=== PATIENT | male | born 1960 | race Two or more races ===

== ENCOUNTER 2025-05-29 09:34 | Inpatient (IN) | payer OTHER ==
[~2025-05-29] VITALS: Ht 337.8 cm; Wt 96.5 kg
--- NOTE | 2025-05-29 10:00 | ECG ---
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
--- NOTE | 2025-05-29 10:34 | DVH ---
CLINICAL INDICATION: Pain, trauma TECHNIQUE: 3 radiographic views of the right knee were obtained. Comparison: XY R KNEE 3V XRAY on DOS: 05/24/25, XY L KNEE 3V XRAY on DOS: 05/24/25 FINDINGS/IMPRESSION: There is no evidence of acute fracture or dislocation. Severe right tricompartmental knee osteoarthrosis.
--- NOTE | 2025-05-29 10:47 | ED.PDOC ---
History of Present Illness HPI Comments 64-year-old male is brought in by ambulance for chief complaint of bilateral knee pain. Per EMS report, patient has a history of chronic bilateral knee pain for over the past year. He states to have worsening general weakness and increased frequency of multiple falls since onset of knee pain, with more recent fall taking place, this morning. Patient is stated to have fallen after losing balance onto his knees, sustaining no additional injuries or losing consciousness then. He denies any further acute symptoms at this time. Chief Complaint: Lower Extremity Time Seen by MD: 09:50 Reviewed Notes: Nurses Notes, Rn Cardiac Notes Allergies: Coded Allergies: NO KNOWN ALLERGIES (Unverified , 05/29/25) Information Source: Patient, Emergency Med Personnel Mode of Arrival: EMS Past Medical History PAST MEDICAL HISTORY: DM, High Lipids, HTN Social History Lives In: Home All Other Systems: Reviewed and Negative (Comprehensive review of systems are negative unless otherwise stated in HPI) Physical Exam General Appearance: Moderate Distress HEENT: Normal ENT Inspection, Pharynx Normal, TMs Normal Neck: Full Range of Motion, Non-Tender, Normal, Normal Inspection Respiratory: Chest Non-Tender, Lungs Clear, No Accessory Muscle Use, No Respiratory Distress, Normal Breath Sounds Cardiovascular: No Edema, No JVD, No Murmur, No Gallop, Normal Peripheral Pulses, Regular Rate/Rhythm Breast Exam: Deferred Gastrointestinal: No Organomegaly, Non Tender, No Pulsatile Mass, Normal Bowel Sounds, Soft Genitalia: Deferred Pelvic: Deferred Rectal: Deferred Extremities: No calf tenderness, Normal capillary refill, Normal range of motion, Non-tender, No pedal edema, Swelling (Bilateral feet) Musculoskeletal : Apperance: Normal Neurologic: Alert, mink farmer II-XII nml as Tested, No Motor Deficits, Normal Affect, Normal Mood, No Sensory Deficits Cerebellar Function: NOT DONE Reflexes: NOT DONE Skin: Dry, Normal Color, Warm, Wounds (Right knee) Peripheral Pulses: 3+ Radial (R), 3+ Radial (L) Lymphatic: No Adenopathy Was a procedure done? Was a procedure done?: No EKG EKG : Pulse Rate (adult): 81 [place]: Normal Cardiac Rhythm: NSR Block: None Hypertrophy: None ST: Normal Differential Dx Considerations may include: Differential diagnoses considered include but are not limited to long bone fracture, rib fracture, soft tissue injury, vascular injury, other X-Ray, Labs, Meds, VS Vital Signs Date Time Temp Pulse Resp B/P (MAP) Pulse Ox O2 Delivery O2 Flow Rate FiO2 05/29/25 10:47 81 05/29/25 09:44 81 05/29/25 09:34 99.9 88 18 151/91 94 99.9 Lab Test 05/29/25 10:37 Range/Units White Blood Count 11.6 H 4.4-10.8 10^3/uL Red Blood Count 5.46 4.5-5.90 10^6/uL Hemoglobin 16.2 13.5-17.5 g/dL Hematocrit 47.7 41.0-53.0 % Mean Corpuscular Volume 87.4 80.0-100.0 fL Mean Corpuscular Hemoglobin 29.7 28.0-32.0 pg Mean Corpuscular Hemoglobin Concent 34.0 32.0-36.0 g/dL Red Cell Distribution Width 14.1 11.8-14.3 % Platelet Count 256 140-450 10^3/uL Mean Platelet Volume 7.8 6.9-10.8 fL Neutrophils (%) (Auto) 82.6 H 37.0-80.0 % Lymphocytes (%) (Auto) 9.6 L 10.0-50.0 % Monocytes (%) (Auto) 7.5 0.0-12.0 % Eosinophils (%) (Auto) 0.2 0.0-7.0 % Basophils (%) (Auto) 0.1 0.0-2.0 % Neutrophils # (Auto) 9.5 H 1.6-8.6 10 ^3/uL Lymphocytes # (Auto) 1.1 0.4-5.4 10 ^3/uL Monocytes # (Auto) 0.9 0-1.3 10 ^3/uL Eosinophils # (Auto) 0 0-0.8 10 ^3/uL Basophils # (Auto) 0 0-0.2 10 ^3/uL Nucleated Red Blood Cells 0.1 % Sodium Level Pending Potassium Level Pending Chloride Level Pending Carbon Dioxide Level Pending Anion Gap Pending Blood Urea Nitrogen Pending Creatinine Pending Glomerular Filtration Rate Calc Pending BUN/Creatinine Ratio Pending Serum Glucose Pending Calcium Level Pending B-Type Natriuretic Peptide Pending [facility] [id number] [facility] [address] Ph: [phone] DIAGNOSTIC IMAGING Diagnostic Imaging Report : [id number] Signed PATIENT: BECKA MILTON ACCT: [id number] UNIT: [id number] : 1960 LOC: ER ROOM / BED: / AGE / SEX: 64 / M ADM STATUS: REG ER SERVICE 0958 ORDERING PHYSICIAN: WALTER DIAZ MD PROCEDURE(s): RKN3 - R KNEE 3V XRAY REASON: fall ORDER NUMBER(s): [id number], ACCESSION NUMBER(s): [id number] CLINICAL INDICATION: Pain, trauma TECHNIQUE: 3 radiographic views of the right knee were obtained. Comparison: XY R KNEE 3V XRAY on DOS: 05/24/25, XY L KNEE 3V XRAY on DOS: 05/24/25 FINDINGS/IMPRESSION: There is no evidence of acute fracture or dislocation. Severe right tricompartmental knee osteoarthrosis. ATED BY: YADIRA DOAN MD DICTATED DATE/TIME: 05/29/25 103 SIGNED BY: YADIRA DOAN MD SIGNED DATE/TIME: 05/29/25 1032 CC: Patient alert. Status post fall. Has been falling frequently for the past year. Complaining of knee pain. X-ray of the knee does not show any acute process. Vitals stable. Answering questions. Possibly need MRI. Explained to the patient. Continue monitoring. Time of 1ST Reevaluation: 10:20 Reevaluation 1ST: Unchanged Patient Education/Counseling: Treatment, Need For Follow Up Family Education/Counseling: No Family Present SEPSIS Sepsis Screen Date sepsis recognized/suspect: May 29, 2025 Time Sepsis recognized/suspect: 09 Recent Procedure: No On Antibiotic Therapy: No Respiratory Rate >20: No Heart Rate >90: No Temp<36 C (96.8 F) or >38.3 C: No SBP <90 or MAP <65 mmHG: No New Acute Mental Status Change: No Is the patient on CPAP, BIPAP,: No Physician Orders R Knee 3v Xray (05/29/25 09:58) Urinalysis (05/29/25 09:58) Basic Metabolic Panel (05/29/25 09:58) B-Type Natriuretic Peptide (05/29/25 09:58) Vital Signs Date Time Temp Pulse Resp B/P (MAP) Pulse Ox O2 Delivery O2 Flow Rate FiO2 05/29/25 10:47 81 05/29/25 09:44 81 05/29/25 09:34 99.9 88 18 151/91 94 99.9 Laboratory Tests Test 05/29/25 10:37 White Blood Count 11.6 10^3/uL (4.4-10.8) H Departure 1 Departure Time of Disposition: 11:02 Impression: Primary Impression: TIA (transient ischemic attack) Additional Impressions: Frequent falls Musculoskeletal pain Disposition: ADMITTED INPATIENT Admit to: Med Surg Condition: Guarded Critical Care Note Critical Care Time?: No Stability Stability form required: No Heart Score Heart Score: Heart Score Response (Comments) Value History N/A 0 EKG N/A 0 Age N/A 0 Risk Factors N/A 0 Troponin N/A 0 Total 0 I personally scribed for WALTER DIAZ MD ([email or web address]) on 05/29/25 at 10:47. Electronically submitted by Kingston Valente ([email or web address]). I personally scribed for WALTER DIAZ MD ([email or web address]) on 05/29/25 at 10:56. Electronically submitted by Kingston Valente ([email or web address]). WALTER DIAZ MD May 29, 2025 10:47
[2025-05-29 10:57] LABS: Hematocrit 47.7 % (41.0-53.0); Hemoglobin 16.2 g/dL (13.5-17.5); Mean Corpuscular Hemoglobin 29.7 pg (28.0-32.0); Mean Corpuscular Volume 87.4 fL (80.0-100.0); Nucleated Red Blood Cells % 0.1 %
[2025-05-29 11:08] LABS: Chloride 101 mmol/L (98-107); Potassium 3.9 mmol/L (3.5-5.1); Sodium 138 mmol/L (136-145)
[2025-05-29 11:09] LABS: Anion Gap 10 (5-15); Calcium 9.6 mg/dL (8.7-10.4); Carbon Dioxide 27 mmol/L (20-31)
[2025-05-29 11:14] LABS: Glucose 276 mg/dL (74-106)
[2025-05-29 11:16] LABS: BUN/Creatinine Ratio 16.3 (10.0-20.0); Blood Urea Nitrogen 14 mg/dL (9-23)
[2025-05-29] MEDS ORDERED: DEXTROSE (50%) 50ML SYRG IV PRN (19:45)
[2025-05-29] MEDS ORDERED: VANCOMYCIN PER PHARMACY 0 MG IV SCH (19:45)
--- NOTE | 2025-05-29 19:48 | DVHHPRES ---
History of Present Illness Resident Creating Document: MÓNICA MERCADO History of Present Illness Tay Adrian is a 64-year-old male patient who presents to ED with chief complaint of bilateral lower limb weakness associated with frequent falls and no head trauma, associated with lower lumbar pain which radiates towards bilateral lower limbs. Per patient these symptoms have been occurring since 08/2024, he never seeked any medical help, in continued using lidocaine patches and Ama which he gets for his chronic back pain. Patient has been noticing increased weakness, more frequent falls and bilateral lower limb swelling in the past week, prompting his visit to the ED. Denies fever, chills, chest pain, dyspnea, nausea, vomiting, diarrhea, sick contacts, unintentional weight loss and other associated symptoms. Past medical history: Hypertension, diabetes, dyslipidemia, chronic back pain, multiple forearm injuries status postop, peripheral neuropathy Surgical history: Head and left foot surgery after forearm injury Family history: Father had [place], mother diabetes Social history: Lives in [place] with (he is her caregiver since she has dementia). 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 Denies current tobacco, alcohol and other drug abuse Allergies: Denies Home medication: Lidocaine and Ama Patient seen and examined at bedside. Currently still complains of bilateral lo wer limb weakness associated with mild electrical lower back pain which radiates towards bilateral thighs. Past Medical History Per HPI Past Surgical History Per HPI Family History Per HPI Past Social History Per HPI Review of Systems Review of Systems Per HPI Allergies: Coded Allergies: NO KNOWN ALLERGIES (Unverified , 05/29/25) Exam Vital Signs Vital Signs Date Time Temp Pulse Resp B/P (MAP) Pulse Ox O2 Delivery O2 Flow Rate FiO2 05/29/25 10:47 81 05/29/25 09:34 99.9 18 151/91 94 99.9 Exam Patient lying in bed, in no acute distress General: Lucid, afebrile, mucosae are moist Cardiovascular: Normal S1 and S2. No murmurs, gallops or rubs Respiratory: Normal ventilation mechanics. Clear lung sounds on auscultation Abdomen: Soft, nontender, no organomegaly, normal bowel sounds MSK/skin: Mobilizes 4 limbs, bilateral lower limbs are extremely weak (strength 1/5). Skin is dry and warm. Presents bilateral infrapatellar pitting edema. Neurological: Oriented in 3 spheres. No motor no sensitive deficits. Pupils ar e isocoric and reactive Labs/Xrays Labs Test 05/29/25 10:37 Range/Units White Blood Count 11.6 H 4.4-10.8 10^3/uL Red Blood Count 5.46 4.5-5.90 10^6/uL Hemoglobin 16.2 13.5-17.5 g/dL Hematocrit 47.7 41.0-53.0 % Mean Corpuscular Volume 87.4 80.0-100.0 fL Mean Corpuscular Hemoglobin 29.7 28.0-32.0 pg Mean Corpuscular Hemoglobin Concent 34.0 32.0-36.0 g/dL Red Cell Distribution Width 14.1 11.8-14.3 % Platelet Count 256 140-450 10^3/uL Mean Platelet Volume 7.8 6.9-10.8 fL Neutrophils (%) (Auto) 82.6 H 37.0-80.0 % Lymphocytes (%) (Auto) 9.6 L 10.0-50.0 % Monocytes (%) (Auto) 7.5 0.0-12.0 % Eosinophils (%) (Auto) 0.2 0.0-7.0 % Basophils (%) (Auto) 0.1 0.0-2.0 % Neutrophils # (Auto) 9.5 H 1.6-8.6 10 ^3/uL Lymphocytes # (Auto) 1.1 0.4-5.4 10 ^3/uL Monocytes # (Auto) 0.9 0-1.3 10 ^3/uL Eosinophils # (Auto) 0 0-0.8 10 ^3/uL Basophils # (Auto) 0 0-0.2 10 ^3/uL Nucleated Red Blood Cells 0.1 % Sodium Level 138 136-145 mmol/L Potassium Level 3.9 3.5-5.1 mmol/L Chloride Level 101 98-107 mmol/L Carbon Dioxide Level 27 20-31 mmol/L Anion Gap 10 5-15 Blood Urea Nitrogen 14 9-23 mg/dL Creatinine 0.86 0.700-1.30 mg/dL Glomerular Filtration Rate Calc 97 >90 mL/min BUN/Creatinine Ratio 16.3 10.0-20.0 Serum Glucose 276 H 74-106 mg/dL Calcium Level 9.6 8.7-10.4 mg/dL B-Type Natriuretic Peptide 0.77 0-100 pg/mL SEPSIS Sepsis Screen Date sepsis recognized/suspect: May 29, 2025 Time Sepsis recognized/suspect: 933 Recent Procedure: No On Antibiotic Therapy: No Respiratory Rate >20: No Heart Rate >90: No Temp<36 C (96.8 F) or >38.3 C: No SBP <90 or MAP <65 mmHG: No New Acute Mental Status Change: No Is the patient on CPAP, BIPAP,: No Physician Orders Cardiac Diet-2gna,Lofat,Lochol (05/29/25 Dinner) Admit (05/29/25 19:18) Code Status (05/29/25:18) Vital Signs .PER UNIT PROTOCOL (05/29/25 19:18) Review Orders With Adm.Md (05/29/25 19:18) Consistent Carb(Ccho)Diabetes (05/30/25 Breakfast) Acetaminophen Tablet (Tylenol Tablet) (05/29/25 19:30) Notify Md Of Changes From Base (05/29/25 19:18) Advance Directive (05/29/25 19:18) Chest Two Views Routine (05/30/25 04:00) Echo 2d Mode Cardiac Dop (05/29/25 19:18) Patient Condition (05/29/25 19:18) Allergies (05/29/25 19:18) Morphine 2mg Iv Q4hprn (05/29/25 19:30) Lovenox 40mg (05/30/25 10:00) Oxygen By Nasal Cannula (05/29/25 19:18) Stat Ekg For Chest Pain (05/29/25 19:18) Notify Md Of Changes From Base (05/29/25 19:18) Human Resources Administrator For 24 Hours (05/29/25 19:18) Emergency Dysrhythmia Protocol (05/29/25 19:18) Rhythm Strips Once Every Shift (05/29/25 19:18) Vitamin D, 25-Hydroxy (05/29/25 19:18) Vitamin B12 (05/29/25 19:18) Urinalysis (05/29/25 19:18) Thyroid Stimulating Hormone (05/29/25 19:18) PTPTT (9/17/25 19:18) Phosphorus (05/29/25 19:18) Magnesium (05/29/25 19:18) Lipid Panel (05/29/25 19:18) Lactic Acid W/ Reflex Order (05/29/25 19:18) Hemoglobin A1c (05/29/25 19:18) Drug Screen (05/29/25 19:18) Head Without Contrast (05/29/25 19:18) Ls Spine Wo Contrast (05/29/25 19:18) Bilat Lower Dvt (05/29/25 19:18) Electrocardigram (05/29/25 19:18) Laboratory Tests Test 05/29/25 10:37 White Blood Count 11.6 10^3/uL (4.4-10.8) H Assessment/Plan Assessment/Plan Sepsis unknown source (rule out UTI and osteomyelitis of lumbar spine) Ordered panculture (blood, urine, sputum) Under empiric IV antibiotic (ceftriaxone and vancomycin) Probable acute on newly diagnosed congestive heart failure Rule out DVT Presents bilateral lower limb pitting edema. BNP negative but patient is obese. Ordered echocardiogram and EKG. Ordered lower limb venous ultrasound Rule out CVA Ordered head CT Proximal bilateral lower limb myopathy - rule out myositis Patient progressively wheelchair-bound Ordered CPK Ordered lumbar CT scan Evaluate neurology consult Diabetes Hypertension Dyslipidemia Gave advice on healthy lifestyle habits On insulin sliding scale Patient does not take antihypertensive or dyslipidemic medication. We will monitor blood pressure and ordered lipid panel Ordered hemoglobin A1c Goals of care discussed with patient for over 18 minutes: Full code status Discussed plan with Dr. Waldron, patient and nurses: Ordered pancultures, currently under empiric IV antibiotic, no aggressive fluid resuscitation due to bilateral lower limb edema. We will ordered echocardiogram to evaluate LVEF. Ordered head and lumbar spine CT to evaluate cause of altered gait and bilateral lower limb weakness. Plan discussed with: Patient, Spouse, Other (Nurses) My Orders Orders - MÓNICA MERCADO RESIDENT Procedure Category Date Status Time Admit ADMIT 05/29/25 Verified 19:18 Code Status CODE 05/29/25 Verified 19:18 Vital Signs OBED 05/29/25 Verified 19:18 Review Orders With OBED 05/29/25 Verified Adm. 19:18 Consistent DIET 05/30/25 Verified Carb(Ccho)Diabetes Breakfast Acetaminophen Tablet PHA 05/29/25 Verified (Tylenol Tablet) 19:30 Notify Md Of Changes [facility] 05/29/25 Verified From Base 19:18 Advance Directive [facility] 05/29/25 Verified 19:18 Chest Two Views XY 05/30/25 Verified Routine 04:00 Echo 2d Mode Cardiac US 05/29/25 Verified DOP 19:18 Patient Condition ORDERS 05/29/25 Verified 19:18 Allergies [facility] 05/29/25 Verified 19:18 Morphine 2mg Iv Q4hprn PHA 05/29/25 Verified 19:30 Lovenox 40mg PHA 05/30/25 Verified 10:00 Oxygen By Nasal RT 05/29/25 Verified Cannula 19:18 Stat Ekg For Chest [facility] 05/29/25 Verified Pain 19:18 Notify Of Changes [facility] 05/29/25 Verified From Base 19:18 Human Resources Administrator For [facility] 05/29/25 Verified 24 Hours 19:18 Emergency Dysrhythmia [facility] 05/29/25 Verified Protocol 19:18 Rhythm Strips Once [facility] 05/29/25 Verified Every Shift 19:18 Vitamin D, 25-Hydroxy LAB 05/29/25 Verified 19:18 Vitamin B12 LAB 05/29/25 Verified 19:18 Urinalysis LAB 05/29/25 Verified 19:18 Thyroid Stimulating LAB 05/29/25 Verified Hormone 19:18 PTPTT LAB 05/29/25 Verified 19:18 Phosphorus LAB 05/29/25 Verified 19:18 Magnesium LAB 05/29/25 Verified 19:18 Lipid Panel LAB 05/29/25 Verified 19:18 Lactic Acid W/ Reflex LAB 05/29/25 Verified Order 19:18 Hemoglobin A1c LAB 05/29/25 Verified 19:18 Drug Screen LAB 05/29/25 Verified 19:[address] 05/29/25 Verified 19:18 Ls Spine Wo Contrast CT 05/29/25 Verified 19:18 Bilat Lower Dvt US 05/29/25 Verified 19:18 Electrocardigram EKG 05/29/25 Verified 19:18 Date of Service: May 29, 2025 Billing Provider: JOHN WALDRON MD Common Visit Codes: [id number] INP/OBS CARE (HIGH) MÓNICA MERCADO RESIDENT May 29, 2025 19:48 JOHN WALDRON MD Jun 05, 2025 19:20
--- NOTE | 2025-05-29 19:56 | DVH ---
CLINICAL HISTORY: Abnormal gait TECHNIQUE: Helical scanning was performed of the head from the skull base to the vertex. Multiplanar reconstructions were performed. This exam was performed according to our departmental dose optimizat ion program. Up-to-date CT equipment and radiation dose reduction techniques are utilized as appropri ate. CTDI 54 DLP 164 COMPARISON: None FINDINGS: There is no evidence for acute intracranial hemorrhage, acute ischemic changes, mass, mass effect, or extra-axial fluid collection. There is no hydrocephalus or midline shift. There is no effacement of the cerebral sulci and basal subarachnoid cisterns. The rfey-white matter differentiation is well beverly ntained. The imaged paranasal sinuses are clear. IMPRESSION: NO ACUTE INTRACRANIAL ABNORMALITY SEEN.
[2025-05-29 20:06] LABS: Alanine Aminotransferase 22.0 U/L (7-40); Albumin 4.3 g/dL (3.2-4.8); Alkaline Phosphatase 71.0 U/L (46-116); Bilirubin, Total 1.2 mg/dL (0.2-1.0); Creatine Kinase IFCC 105.0 U/L (46-171); Total Protein 7.9 g/dL (5.7-8.2)
[2025-05-29 20:07] LABS: Bilirubin, Direct 0.5 mg/dL (<0.3)
--- NOTE | 2025-05-29 20:29 | DVH ---
CT LS SPINE WO CONTRAST Date: 05/29/2025 07:27 PM History: Abnormal gait Comparison: None TECHNIQUE: Multiple axial CT images of the lumbosacral spine were obtained using bone algorithm. Axial and coron al reformatting was done. Bone and soft tissue windows were reviewed. Radiation Dose Information: CT Dose: CTDI volume is 24.71 mGy. Dose-length product is 923.38 mGy*cm FINDINGS: No CT evidence of definite acute fracture, spinal dislocation, or significant appearing acute subluxa tion is seen. The visualized paraspinal soft tissues are grossly unremarkable. T12-L1 There is no evidence of central spinal canal or neuroforaminal stenosis. L1-L2 mild diffuse annular bulging of the disc with degenerative disc changes narrowing of the centra l canal measuring 8-9 mm L2-L3 diffuse annular bulging of the dist L2-3 with degenerative disc changes in the [id number] central canal stenosis measuring 6-7 mm want to back. There is also hypertrophic arthritic bony garnica ges of the posterior facets and hypertrophy of the ligamentum flavum bilaterally. L3-L4 degenerative disc changes with diffuse annular bulging of the disc hypertrophic bony changes of the posterior facets and hypertrophy of the ligamentum flavum bilaterally creating mild to moderate spinal stenosis. L4-L5 diffuse annular bulging of the disc with degenerative disc changes. Moderate spinal stenosis no thais at L4-5 with front to back dimension of the canal measuring 7-8 mm. L5-S1 diffuse annular bulging of the dist central canal measuring 6-7 mm. IMPRESSION: 1. No definite CT evidence of acute fracture or dislocation of the bony lumbar spine. 2. Multilevel degenerative changes of the lumbar spine with multilevel spinal stenosis as described a stacy. 3. Stenosis of the central canal from L1-2 to L5-S1.
[2025-05-29 20:31] LABS: INR 1.03 (0.9-1.15); Partial Thromboplastin Time 30.1 SEC (24.5-34.5); Prothrombin Time 10.9 sec (9.3-11.8)
--- NOTE | 2025-05-29 20:32 | DVH ---
CLINICAL HISTORY: Bilateral lower limb swelling TECHNIQUE: Color and duplex doppler imagine of the bilateral lower extremity veins was performed. Ves estrella compression and augmentation if possible was also performed. COMPARISON: None FINDINGS: Right Lower Extremity: Right common femoral vein: Normal compressibility and flow. Right superficial femoral vein: Normal compressibility and flow. Right popliteal vein: Normal compressibility and flow. Proximal calf veins demonstrate flow. Left Lower Extremity: Left common femoral vein: Normal compressibility and flow. Left superficial femoral vein: Normal compressibility and flow. Left popliteal vein: Normal compressibility and flow. Proximal calf veins demonstrate flow. IMPRESSION: NO SONOGRAPHIC EVIDENCE FOR DEEP VENOUS THROMBOSIS IN THE BILATERAL LOWER EXTREMITY VEINS.
[2025-05-29] MEDS: PANTOPRAZOLE 40 MG TAB PO ONE (20:42)
[2025-05-29] MEDS: FUROSEMIDE 40 MG/4 ML VIAL IV ONE (20:44)
[2025-05-29] MEDS: VANCOMYCIN 1GM/250ML KIT 250 ML IV SCH (21:15)
[2025-05-29 21:27] LABS: Triglycerides 107.0 mg/dL (< 150)
[2025-05-29 21:28] LABS: Magnesium 1.9 mg/dL (1.6-2.6)
[2025-05-29 21:29] LABS: Cholesterol 139.0 mg/dL (< 200)
[2025-05-29 21:35] LABS: HDL Cholesterol 39.0 mg/dL (40-59)
[2025-05-29] MEDS: InsuLIN REG 1unit/0.01ml Soln (100units/ml) SC SCH (22:41)
[2025-05-29] MEDS: ACCU-CHEK COMFORT CURVE STRIP VI SCH (22:42)
--- NOTE | 2025-05-30 00:48 | DVH ---
CHEST RADIOGRAPH Indication: Probable CHF Technique: Frontal and lateral view of the chest was obtained Comparison: None FINDINGS: Lines and Tubes: None Lungs: Clear Pleura: No effusion. No pneumothorax. Cardiomediastinal contours: Unremarkable Bones: Unremarkable IMPRESSION: 1. No evidence of acute disease.
[2025-05-30 06:00] LABS: Hematocrit 46.0 % (41.0-53.0); Hemoglobin 15.9 g/dL (13.5-17.5); Mean Corpuscular Hemoglobin 30.5 pg (28.0-32.0); Mean Corpuscular Volume 88.1 fL (80.0-100.0); Nucleated Red Blood Cells % 0.0 %
[2025-05-30 06:25] LABS: Alanine Aminotransferase 18 U/L (7-40); Albumin 4.1 g/dL (3.2-4.8); Alkaline Phosphatase 68 U/L (46-116); Anion Gap 11 (5-15); BUN/Creatinine Ratio 14.0 (10.0-20.0); Blood Urea Nitrogen 17 mg/dL (9-23); Calcium 9.6 mg/dL (8.7-10.4); Carbon Dioxide 26 mmol/L (20-31); Chloride 99 mmol/L (98-107); Potassium 4.4 mmol/L (3.5-5.1); Total Protein 7.5 g/dL (5.7-8.2)
[2025-05-30 06:29] LABS: Bilirubin, Total 1.2 mg/dL (0.2-1.0); Glucose 302 mg/dL (74-106); Sodium 136 mmol/L (136-145)
[2025-05-30] MEDS: ENOXAPARIN SOD 40 MG/0.4 ML SYRINGE SC SCH (08:16)
[2025-05-30] MEDS: PANTOPRAZOLE 40 MG TAB PO SCH (08:17)
[2025-05-30] MEDS: FUROSEMIDE 40 MG/4 ML VIAL IV SCH (08:17)
[2025-05-30 08:32] VITALS: PULSE 67; RESP 19; O2SAT 98
--- NOTE | 2025-05-30 09:39 | DVHPNRES ---
Progress Note Date Seen: May 30, 2025 Resident Creating Document: EDIN CAMPA RESIDENT Medical Necessity Reason Pt with a Central, PICC or Fol: No Subjective Review of Systems Tay Adrian is a 64-year-old male patient who presents to ED with chief complaint of bilateral lower limb weakness associated with frequent falls and no head trauma, associated with lower lumbar pain which radiates towards bilateral lower limbs. Per patient these symptoms have been occurring since 08/2024, he never seeked any medical help, in continued using lidocaine patches and [place] which he gets for his chronic back pain. Patient has been noticing increased weakness, more frequent falls and bilateral lower limb swelling in the past week, prompting his visit to the ED. Denies fever, chills, chest pain, dyspnea, nausea, vomiting, diarrhea, sick contacts, unintentional weight loss and other associated symptoms. Past medical history: Hypertension, diabetes, dyslipidemia, chronic back pain, multiple forearm injuries status postop, peripheral neuropathy Surgical history: Head and left foot surgery after forearm injury Family history: Father had [place], mother diabetes Social history: Lives in [place] with (he is her caregiver since she has dementia). 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 Denies current tobacco, alcohol and other drug abuse Allergies: Denies Home medication: Lidocaine and [place] Patient seen and examined at bedside. Currently still complains of bilateral lower limb weakness associated with mild electrical lower back pain which radiates towards bilateral thighs. Objective vital signs Vital Sign Date Time Temp Pulse Resp B/P (MAP) Pulse Ox O2 Delivery O2 Flow Rate FiO2 05/30/25 08:32 67 19 98 Room Air* 0 21 05/30/25 08:31 98.0 134/81 (98) 98.0 Total Intake and Output 05/29/25 05/29/25 05/30/25 15:00 23:00 07:00 Intake Total 300 ml Balance 300 ml medications Current Medications Medications Dose Ordered Sig/April Route Start Time Stop Time Status Last Admin Dose Admin Acetaminophen 650 mg Q6HP PRN PO 05/29/25 19:30 Morphine Sulfate 2 mg Q4HPRN PRN IV 05/29/25 19:30 Enoxaparin Sodium 40 mg DAILY SC 05/30/25 10:00 05/30/25 08:16 40 MG Ceftriaxone Sodium 50 ml @ 100 mls/hr DAILY@09 IV 05/30/25 09:00 05/30/25 08:17 100 MLS/HR Vancomycin HCl 0 ml @ 0 mls/hr UD IV 05/29/25 19:45 Diagnostic Test (Pha) 1 strip ACHS 05/29/25 22:00 05/30/25 08:06 1 STRIP Insulin Human Regular ACHS SC 05/29/25 22:00 05/30/25 08:07 6 UNITS Dextrose 50 ml UD PRN IV 05/29/25 19:45 Furosemide 40 mg BIDD IV 05/30/25 06:00 05/30/25 08:17 40 MG Pantoprazole Sodium 40 mg DAILY@0600 PO 05/30/25 06:00 05/30/25 08:17 40 MG Insulin Glargine 10 units DAILY@1000 SC 05/30/25 10:00 UNV Examination Patient lying in bed, in no acute distress General: Lucid, afebrile, mucosae are moist Cardiovascular: Normal S1 and S2. No murmurs, gallops or rubs Respiratory: Normal ventilation mechanics. Clear lung sounds on auscultation Abdomen: Soft, nontender, no organomegaly, normal bowel sounds MSK/skin: Mobilizes 4 limbs, bilateral lower limbs are extremely weak (strength 1/5). Skin is dry and warm. Presents bilateral infrapatellar pitting edema. Neurological: Oriented in 3 spheres. No motor no sensitive deficits. Pupils are isocoric and reactive laboratory and microbiology Laboratory Tests 05/30/25 05:34 Test 05/30/25 05:34 Range/Units Serum Glucose 302 H 74-106 mg/dL Problem List/Assessment/Plan Problem List/Assessment/Plan Sepsis unknown source (rule out UTI and osteomyelitis of lumbar spine) Ordered panculture (blood, urine, sputum) Under empiric IV antibiotic (ceftriaxone and vancomycin) Probable acute on newly diagnosed congestive heart failure Rule out DVT Presents bilateral lower limb pitting edema. BNP negative but patient is obese. echocardiogram Mild LVH and mild LV diastolic dysfunction, LV ejection fraction 65%, normal, normal valves and no effusion EKG. lower limb venous ultrasound no DVT Rule out CVA Ordered head CT Proximal bilateral lower limb myopathy - rule out myositis Right knee effusion ( swelling and warmth) due to septic arthritis? Left knee swelling Patient progressively wheelchair-bound Ordered CPK Ordered lumbar CT scan Evaluate neurology consult both knee ultrasound ordered. Diabetes Hypertension Dyslipidemia Gave advice on healthy lifestyle habits On insulin sliding scale Patient does not take antihypertensive or dyslipidemic medication. We will monitor blood pressure and ordered lipid panel hemoglobin A1c Goals of care discussed with patient for over 18 minutes: Full code status Discussed plan with Dr. Garcia, patient and nurses: Currently under empiric IV antibiotic, no aggressive fluid resuscitation due to bilateral lower limb edema. Plan discussed with: Patient, Spouse, Other (Nurses) Plan discussed with: Patient, Other (RN) My Orders My Orders Orders - EDIN CAMPA Procedure Category Date Status Time Insulin Lantus PHA 05/30/25 Logged (Glargine) (Lantus) 10:00 Date of Service: May 30, 2025 Billing Provider: JOHN GARCIA MD Common Visit Codes: [id number] INP/OBS CARE(HIGH) EDIN CAMPA May 30, 2025 09:39 MÓNICA MERCADO RESIDENT Jun 04, 2025 11:36 JOHN GARCIA MD Jun 05, 2025 20:17
[2025-05-30] MEDS: INSULIN LANTUS (GLARGINE) 1 /0.01ml (100units/ml) SC SCH (10:33)
[2025-05-30 11:17] LABS: Urine Protein, UAD Negative (Negative)
[2025-05-30 11:20] LABS: Amphetamine Screen, Urine Neg (NEGATIVE); Barbiturate Scree,Urine Neg (NEGATIVE); Benzodiazephine Screen, Urine Neg (NEGATIVE); Cannabinoid Screen, Urine Neg (NEGATIVE); Cocaine Screen, Urine Neg (NEGATIVE); Opiate Scree,Urine Neg (NEGATIVE); Phencyclidine Screen, Urine Neg (NEGATIVE)
[2025-05-30 16:10] VITALS: BP 132/81; PULSE 74; RESP 18; TEMP 98.2; O2SAT 97
[2025-05-30 17:00] VITALS: BP 136/83; PULSE 74; RESP 18; TEMP 98.2; O2SAT 97
[2025-05-30] MEDS ORDERED: EMPA1TAB3 PO (17:20)
[2025-05-30] MEDS ORDERED: METF-372 PO (17:20)
[2025-05-30] MEDS ORDERED: SIMV20TA20 PO (17:20)
[2025-05-30] MEDS ORDERED: LOSA-535 PO (17:20)
[2025-05-30 20:00] VITALS: PULSE 105
[2025-05-30 21:00] VITALS: BP 125/80; PULSE 101; RESP 20; TEMP 98.2; O2SAT 94
--- NOTE | 2025-05-30 22:25 | DVH ---
Exam: US LEFT LOWER EXTREMITY ULTRASOUN Date: 05/30/2025 09:52 PM Clinical History: Swelling and warmth over both knee joints. Comparison: US RIGHT LOWER EXTREMITY ULTRASOU on DOS: 05/30/25, US BILAT LOWER DVT on DOS: 05/29/25, XY R KNEE 3V XRAY on DOS: 05/29/25 Technique: Targeted sonographic evaluation of the soft tissues of the left knee anteriorly was obtained utilizin g grayscale and color Doppler imaging. Findings: There is a 3.7 x 0.9 x 2.6 cm anechoic area anterior to the left knee corresponding to the area of in terest. This appears avascular. IMPRESSION: 1. There is a 3.7 x 0.9 x 2.6 cm anechoic area anterior to the left knee corresponding to the area of interest. 2. This appears avascular. 3. This is nonspecific but could represent a fluid collection.
--- NOTE | 2025-05-30 22:27 | DVH ---
Exam: US RIGHT LOWER EXTREMITY ULTRASOU Date: 05/30/2025 09:55 PM Clinical History: Swelling and redness over the right knee joint Comparison: US LEFT LOWER EXTREMITY ULTRASOUN on DOS: 05/30/25, US BILAT LOWER DVT on DOS: 05/29/25, XY R KNEE 3V XRAY on DOS: 05/29/25 Technique: Targeted sonographic evaluation of the soft tissues of the right knee in an area of interest. was obt ained utilizing grayscale and color Doppler imaging. Findings: There is no evidence for drainable collection. There is no evidence for solid or cystic mass in the site. No vascular abnormalities identified at this site. In the area of interest anteriorly over the right knee is a 4.4 x 0.7 by 4.5 cm anechoic area which m ay represent a fluid collection. IMPRESSION: 1. In the area of interest anteriorly over the right knee is a 4.4 x 0.7 by 4.5 cm anechoic area whic h may represent a fluid collection.
[2025-05-31] VITALS (9 sets, daily range): BP systolic 128–143; BP diastolic 69–96; PULSE 82–101; RESP 16–22; TEMP 98.1–99.8; O2SAT 94–98
[2025-05-31 07:02] LABS: Hematocrit 45.9 % (41.0-53.0); Hemoglobin 16.0 g/dL (13.5-17.5); Mean Corpuscular Hemoglobin 30.5 pg (28.0-32.0); Mean Corpuscular Volume 87.5 fL (80.0-100.0); Nucleated Red Blood Cells % 0.1 %
[2025-05-31 07:11] LABS: Potassium 3.7 mmol/L (3.5-5.1)
[2025-05-31 07:12] LABS: Anion Gap 10 (5-15); Carbon Dioxide 30 mmol/L (20-31)
[2025-05-31 07:13] LABS: Calcium 9.5 mg/dL (8.7-10.4); Chloride 96 mmol/L (98-107); Sodium 136 mmol/L (136-145)
[2025-05-31 07:18] LABS: BUN/Creatinine Ratio 21.4 (10.0-20.0)
[2025-05-31 07:19] LABS: Blood Urea Nitrogen 24 mg/dL (9-23); Glucose 231 mg/dL (74-106)
[2025-05-31] MEDS: VANCOMYCIN 1GM/250ML KIT 250 ML IV ONE (10:14)
--- NOTE | 2025-05-31 13:44 | DVHPNRES ---
Progress Note Date Seen: May 31, 2025 Resident Creating Document: EDIN CAMPA Medical Necessity Reason Pt with a Central, PICC or Fol: No Subjective Review of Systems Tay Adrian is a 64-year-old male patient who presents to ED with chief complaint of bilateral lower limb weakness associated with frequent falls and no head trauma, associated with lower lumbar pain which radiates towards bilateral lower limbs. Per patient these symptoms have been occurring since 08/2024, he never seeked any medical help, in continued using lidocaine patches and [place] which he gets for his chronic back pain. Patient has been noticing increased weakness, more frequent falls and bilateral lower limb swelling in the past week, prompting his visit to the ED. Denies fever, chills, chest pain, dyspnea, nausea, vomiting, diarrhea, sick contacts, unintentional weight loss and other associated symptoms. Past medical history: Hypertension, diabetes, dyslipidemia, chronic back pain, multiple forearm injuries status postop, peripheral neuropathy Surgical history: Head and left foot surgery after forearm injury Family history: Father had [place], mother diabetes Social history: Lives in [place] with (he is her caregiver since she has dementia). 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 Denies current tobacco, alcohol and other drug abuse Allergies: Denies Home medication: Lidocaine and [place] Patient seen and examined at bedside. The patient complains of mild fever and right-sided knee swelling and warmth. He denies chest pain, shortness of breaths or any other complaints. Objective vital signs Vital Sign Date Time Temp Pulse Resp B/P (MAP) Pulse Ox O2 Delivery O2 Flow Rate FiO2 05/31/25 13:00 99.7 82 18 136/78 (97) 97 99.7 05/30/25 20:00 Room Air* 0 21 Total Intake and Output 05/30/25 05/30/25 05/31/25 15:00 23:00 07:00 Intake Total 300 ml 620 ml 400 ml Output Total 600 ml Balance 300 ml 620 ml -200 ml medications Current Medications Medications Dose Ordered Sig/April Route Start Time Stop Time Status Last Admin Dose Admin Acetaminophen 650 mg Q6HP PRN PO 05/29/25 19:30 Morphine Sulfate 2 mg Q4HPRN PRN IV 05/29/25 19:30 Enoxaparin Sodium 40 mg DAILY SC 05/30/25 10:00 05/31/25 09:39 40 MG Ceftriaxone Sodium 50 ml @ 100 mls/hr DAILY@09 IV 05/30/25 09:00 05/31/25 08:35 100 MLS/HR Vancomycin HCl 0 ml @ 0 mls/hr UD IV 05/29/25 19:45 Diagnostic Test (Pha) 1 strip ACHS 05/29/25 22:00 05/31/25 11:55 1 STRIP Insulin Human Regular ACHS SC 05/29/25 22:00 05/31/25 13:33 4 UNITS Dextrose 50 ml UD PRN IV 05/29/25 19:45 Pantoprazole Sodium 40 mg DAILY@0600 PO 05/30/25 06:00 05/31/25 06:18 40 MG Insulin Glargine 10 units DAILY@1000 SC 05/30/25 10:00 05/31/25 09:41 10 UNITS Furosemide 20 mg DAILY IV 06/01/25 10:00 Colchicine 0.6 mg DAILY PO 06/01/25 10:00 Examination Examination Patient lying in bed, in no acute distress General: Lucid, afebrile, mucosae are moist Cardiovascular: Normal S1 and S2. No murmurs, gallops or rubs Respiratory: Normal ventilation mechanics. Clear lung sounds on auscultation Abdomen: Soft, nontender, no organomegaly, normal bowel sounds MSK/skin: Mobilizes 4 limbs, bilateral lower limbs are extremely weak (strength 1/5). Skin is dry and warm. Presents bilateral infrapatellar pitting edema. Neurological: Oriented in 3 spheres. No motor no sensitive deficits. Pupils are isocoric and reactive laboratory and microbiology Laboratory Tests 05/31/25 05:55 Test 05/31/25 05:55 Range/Units Serum Glucose 231 H 74-106 mg/dL Microbiology Date/Time Source Procedure Growth Status 05/30/25 01:00 Voided Urine Urine Culture - Preliminary Resulted 05/29/25 20:00 Blood Blood Culture - Preliminary NO GROWTH AFTER 24 HOURS OF INCUBATION. Resulted Labs and/or images reviewed: Labs reviewed by me, Image(s) reviewed by me Problem List/Assessment/Plan Problem List/Assessment/Plan Sepsis unknown source (rule out UTI and osteomyelitis of lumbar spine) Ordered panculture Blood and urine cultures revealed no growth Under empiric IV antibiotic (ceftriaxone and vancomycin) Probable acute on newly diagnosed congestive heart failure Rule out DVT Presents bilateral lower limb pitting edema. BNP negative but patient is obese. echocardiogram Mild LVH and mild LV diastolic dysfunction, LV ejection fraction 65%, normal, normal valves and no effusion EKG. lower limb venous ultrasound no DVT Rule out CVA head CT : No acute abnormality Proximal bilateral lower limb myopathy - rule out myositis Right knee effusion ( swelling and warmth) due to septic arthritis? Left knee swelling Patient progressively wheelchair-bound CPK normal Lumbar spine CT: No definite CT evidence of acute fracture or dislocation of the bony lumbar spine, multiple degenerative changes of the lumbar spine with multilevel spinal stenosis stenosis of the central canal from L1-L2 to L5-S1. Evaluate neurology consult Right knee ultrasound revealed fluid collection.Ultrasound-guided aspiration of the right knee completed. Fluid study: PH 8, WBC 8 750, RBC 180 1000, Fluid polymorphonuclear cell 80 Uncontrolled Diabetes Hypertension Dyslipidemia Gave advice on healthy lifestyle habits On insulin sliding scale Patient does not take antihypertensive or dyslipidemic medication. We will monitor blood pressure and ordered lipid panel hemoglobin A1c 11.6 Goals of care discussed with patient for over 18 minutes: Full code status Discussed plan with Dr. Garcia, patient and nurses: Currently under empiric IV antibiotic, no aggressive fluid resuscitation due to bilateral lower limb edema. Plan discussed with: Patient, Other (RN) My Orders My Orders Orders - EDIN CAMPA RESIDENT Procedure Category Date Status Time Right Lower Extremity US 05/30/25 Resulted Ultrasou 21:27 Left Lower Extremity US 05/30/25 Resulted Ultrasoun 21:27 * Radiologist Consult CONS 05/31/25 Transmitted 08:50 Body Fluid Culture W/ JUAN PABLO 05/31/25 Uncollected GS 11:47 Body Fluid Ph LAB 05/31/25 Logged 11:47 Body Fluids, Diff. LAB 05/31/25 Logged Cell Count 11:47 Protein, Body Fluid LAB 05/31/25 Logged 11:47 Glucose Body Fluid LAB 05/31/25 Logged 11:47 Albumin; Body Fluid LAB 05/31/25 Logged 11:47 Furosemide Injection PHA 06/01/25 In Process (Lasix Injection) 10:00 Uric Acid LAB 05/31/25 Logged 12:26 Colchicine (Colcrys) PHA 06/01/25 In Process 10:00 Us Guidance For US 05/31/25 Logged Needle Placeme 12:33 Date of Service: May 31, 2025 Billing Provider: JOHN GARCIA MD Common Visit Codes: [id number] INP/OBS CARE(HIGH) EDIN CAMPA RESIDENT May 31, 2025 13:44 MÓNICA MERCADO RESIDENT Jun 04, 2025 11:37 JOHN GARCIA MD Jun 05, 2025 20:30
[2025-05-31] MEDS: COLCHICINE 0.6 MG CAP PO ONE (15:02)
[2025-05-31] MEDS: FUROSEMIDE 20 MG/2 ML VIAL IV ONE (15:03)
--- NOTE | 2025-05-31 16:46 | DVH ---
PROCEDURE: ULTRASOUND GUIDED ASPIRATION HISTORY: BILAT KNEE ASPIRATION TECHNIQUE: Informed consent was obtained and a procedural time out was performed. The skin over the right knee was sterilely prepped, draped, and infiltrated with 1% lidocaine. Ultrasound was used to locate the fluid collection with images archived in the PACS. Using real-time ultrasound guidance, th e collection was accessed with a 19-gauge Yueh needle. Sterile dressings were applied. FINDINGS: Ultrasound demonstrates a small fluid collection. Serosanguineous material was aspirated wi th a sample sent for laboratory evaluation. No complications were encountered. IMPRESSION: Ultrasound-guided aspiration within the right knee. Procedure performed by Dr. Whyte.
--- NOTE | 2025-05-31 20:40 | DVHSR ---
APPROVED REPORT EXAM: Two-dimensional and M-mode echocardiogram with Doppler and color Doppler. Blood Pressure: 140/96 mmHg INDICATION Heart Failure RISK FACTORS Weight: 220 DIMENSIONS LVDd5.1 (3.8-5.7cm)LA (2D)3.2 (1.9-4.0cm)Aortic Root3.2 (2.0-3.7cm) LVDs2.8 (2.5-4.0cm)LA (MM) (1.9-4.0cm)Aortic Cusp Exc1.9 (1.5-2.0cm) EF (%) 76.0 (55-70%)Rt. Atrium4.0 (1.9-4.0cm)Asc. Aorta3.4 cm IVSd1.2 (0.7-1.1cm)RV (D) (1.8-2.4cm) Mitral Valve MitralMitral Stenosis E wave0.75m/sMV Mean GR.mmHg A wave1.05m/sMV Peak GR.mmHg E/A ratio0.72D MVAcm2 DECEL [id number] 1/2 Timems Aortic Valve Aortic ValveAortic Stenosis V11.00m/Zachary Mean GR.5mmHg V21.47m/Zachary Peak GR.9mmHg LVOT Diameter2.4 (1.8-2.4cm)Doppler AVA3.08cm2 Other Information Quality : Technically LimitedRhythm : Technically limited study due to body habitus. Conclusion MILD LVH AND MILD LV DIASTOLIC DYSFUNCTION LV EF IS 65% AND IS NORMAL NORMAL VALVES NO EFFUSION
[2025-06-01] VITALS (8 sets, daily range): BP systolic 119–140; BP diastolic 71–83; PULSE 77–94; RESP 12–20; TEMP 97.7–99.9; O2SAT 95–98
[2025-06-01 07:21] LABS: Hematocrit 44.0 % (41.0-53.0); Hemoglobin 15.1 g/dL (13.5-17.5); Mean Corpuscular Hemoglobin 30.2 pg (28.0-32.0); Mean Corpuscular Volume 87.7 fL (80.0-100.0); Nucleated Red Blood Cells % 0.1 %
[2025-06-01 07:37] LABS: Alanine Aminotransferase 15 U/L (7-40); Alkaline Phosphatase 70 U/L (46-116); Anion Gap 11 (5-15); BUN/Creatinine Ratio 18.3 (10.0-20.0); Blood Urea Nitrogen 20 mg/dL (9-23); Calcium 9.2 mg/dL (8.7-10.4); Carbon Dioxide 31 mmol/L (20-31)
[2025-06-01 07:38] LABS: Total Protein 7.7 g/dL (5.7-8.2)
[2025-06-01 07:39] LABS: Albumin 4.1 g/dL (3.2-4.8)
[2025-06-01 07:43] LABS: Bilirubin, Total 1.7 mg/dL (0.2-1.0); Chloride 92 mmol/L (98-107); Glucose 217 mg/dL (74-106); Potassium 3.5 mmol/L (3.5-5.1); Sodium 134 mmol/L (136-145)
[2025-06-01] MEDS: FUROSEMIDE 20 MG/2 ML VIAL IV SCH (09:00)
[2025-06-01] MEDS: COLCHICINE 0.6 MG CAP PO SCH (09:00)
[2025-06-01] MEDS ORDERED: DEXTROSE (50%) 50ML SYRG IV PRN (10:00)
[2025-06-01] MEDS: ACCU-CHEK COMFORT CURVE STRIP VI SCH (12:24)
[2025-06-01] MEDS: InsuLIN REG 1unit/0.01ml Soln (100units/ml) SC SCH (12:30)
[2025-06-01 13:07] LABS: Albumin, Body Fluid 2.6 g/dL (Not Estab.); Glucose, Body Fluid 245.0 mg/dL (.)
--- NOTE | 2025-06-01 14:31 | DVHPNRES ---
Progress Note Date Seen: Jun 01, 2025 Resident Creating Document: EDIN CAMPA Medical Necessity Reason Pt with a Central, PICC or Fol: No Subjective Review of Systems Tay Adrina is a 64-year-old male patient who presents to ED with chief complaint of bilateral lower limb weakness associated with frequent falls and no head trauma, associated with lower lumbar pain which radiates towards bilateral lower limbs. Per patient these symptoms have been occurring since 08/2024, he never seeked any medical help, in continued using lidocaine patches and [place] which he gets for his chronic back pain. Patient has been noticing increased weakness, more frequent falls and bilateral lower limb swelling in the past week, prompting his visit to the ED. Denies fever, chills, chest pain, dyspnea, nausea, vomiting, diarrhea, sick contacts, unintentional weight loss and other associated symptoms. Past medical history: Hypertension, diabetes, dyslipidemia, chronic back pain, multiple forearm injuries status postop, peripheral neuropathy Surgical history: Head and left foot surgery after forearm injury Family history: Father had [place], mother diabetes Social history: Lives in [place] with (he is her caregiver since she has dementia). 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 Denies current tobacco, alcohol and other drug abuse Allergies: Denies Home medication: Lidocaine and [place] Patient seen and examined at bedside. The patient complains of improvement in his symptoms after the fluid tap. He denies chest pain, shortness of breaths or any other complaints. Objective vital signs Vital Sign Date Time Temp Pulse Resp B/P (MAP) Pulse Ox O2 Delivery O2 Flow Rate FiO2 06/01/25 12:48 99.6 84 18 120/75 (90) 95 99.6 06/01/25 08:00 Room Air* 0 21 Total Intake and Output 05/31/25 05/31/25 06/01/25 15:00 23:00 07:00 Intake Total 300 ml 540 ml 500 ml Output Total 1675 ml Balance 300 ml -1135 ml 500 ml medications Current Medications Medications Dose Ordered Sig/April Route Start Time Stop Time Status Last Admin Dose Admin Acetaminophen 650 mg Q6HP PRN PO 05/29/25 19:30 Morphine Sulfate 2 mg Q4HPRN PRN IV 05/29/25 19:30 Enoxaparin Sodium 40 mg DAILY SC 05/30/25 10:00 06/01/25 09:00 40 MG Ceftriaxone Sodium 50 ml @ 100 mls/hr DAILY@09 IV 05/30/25 09:00 06/01/25 08:29 100 MLS/HR Vancomycin HCl 0 ml @ 0 mls/hr UD IV 05/29/25 19:45 Pantoprazole Sodium 40 mg DAILY@0600 PO 05/30/25 06:00 06/01/25 06:25 40 MG Insulin Glargine 10 units DAILY@1000 SC 05/30/25 10:00 06/01/25 09:06 10 UNITS Furosemide 20 mg DAILY IV 06/01/25 10:00 06/01/25 09:00 20 MG Colchicine 0.6 mg DAILY PO 06/01/25 10:00 06/01/25 09:00 0.6 MG Diagnostic Test (Pha) 1 strip Q6HR 06/01/25 12:00 06/01/25 12:24 1 STRIP Insulin Human Regular Q6HR SC 06/01/25 12:00 06/01/25 12:30 9 UNITS Dextrose 50 ml UD PRN IV 06/01/25 10:00 Examination Examination Patient lying in bed, in no acute distress General: Lucid, afebrile, mucosae are moist Cardiovascular: Normal S1 and S2. No murmurs, gallops or rubs Respiratory: Normal ventilation mechanics. Clear lung sounds on auscultation Abdomen: Soft, nontender, no organomegaly, normal bowel sounds MSK/skin: Mobilizes 4 limbs, bilateral lower limbs are extremely weak (strength 1/5). Skin is dry and warm. Presents bilateral infrapatellar pitting edema. Neurological: Oriented in 3 spheres. No motor no sensitive deficits. Pupils are isocoric and reactive laboratory and microbiology Laboratory Tests 06/01/25 05:45 Test 06/01/25 05:45 Range/Units Serum Glucose 217 H 74-106 mg/dL Microbiology Date/Time Source Procedure Growth Status 05/31/25 15:30 Knee Fluid Gram Stain Pending Resulted 05/31/25 15:30 Knee Fluid Body Fluid Culture - Preliminary Resulted 05/30/25 01:00 Voided Urine Urine Culture - Final Complete 05/29/25 20:00 Blood Blood Culture - Preliminary NO GROWTH AFTER 48 HOURS OF INCUBATION. Resulted Labs and/or images reviewed: Labs reviewed by me, Image(s) reviewed by me Problem List/Assessment/Plan Problem List/Assessment/Plan Sepsis unknown source (rule out UTI and osteomyelitis of lumbar spine) Ordered panculture Blood and urine cultures revealed no growth Under empiric IV antibiotic (ceftriaxone and vancomycin) Probable acute on newly diagnosed congestive heart failure Rule out DVT Presents bilateral lower limb pitting edema. BNP negative but patient is obese. echocardiogram Mild LVH and mild LV diastolic dysfunction, LV ejection fraction 65%, normal, normal valves and no effusion EKG. lower limb venous ultrasound no DVT Rule out CVA head CT : No acute abnormality Proximal bilateral lower limb myopathy - rule out myositis Right knee effusion ( swelling and warmth) due to septic arthritis? Left knee swelling Patient progressively wheelchair-bound CPK normal Lumbar spine CT: No definite CT evidence of acute fracture or dislocation of the bony lumbar spine, multiple degenerative changes of the lumbar spine with multilevel spinal stenosis stenosis of the central canal from L1-L2 to L5-S1. Right knee ultrasound revealed fluid collection.Ultrasound-guided aspiration of the right knee completed. Fluid study: PH 8, WBC 8 750, RBC 180 1000, Fluid polymorphonuclear cell 80 Uncontrolled Diabetes Hypertension Dyslipidemia Gave advice on healthy lifestyle habits On insulin sliding scale Patient does not take antihypertensive or dyslipidemic medication. We will monitor blood pressure and ordered lipid panel hemoglobin A1c 11.6 Goals of care discussed with patient for over 18 minutes: Full code status Discussed plan with Dr. Love, patient and nurses: Currently under empiric IV antibiotic, no aggressive fluid resuscitation due to bilateral lower limb edema. Plan discussed with: Patient, Spouse, Other (Nurses) Plan discussed with: Patient, Other (RN) Plan discussed with: Patient, Other (RN) My Orders My Orders Orders - EDIN CAMPA Procedure Category Date Status Time Glucose Blood PHA 06/01/25 In Process (Accu-Chek Comfort 12:00 Insulin R (Human) PHA 06/01/25 In Process (Insulin R) 12:00 Dextrose 50% Syringe PHA 06/01/25 In Process 10:00 Date of Service: Jun 01, 2025 Billing Provider: CORINA LOVE MD Common Visit Codes: [id number] INP/OBS CARE(HIGH) EDIN CAMPA Jun 01, 2025 14:31 CORINA LOVE MD Jun 02, 2025 09:19
[2025-06-01] MEDS: VANCOMYCIN 750MG KIT 100 ML IV SCH (18:12)
[2025-06-02] VITALS (8 sets, daily range): BP systolic 104–139; BP diastolic 55–82; PULSE 70–86; RESP 12–20; TEMP 97.2–98.5; O2SAT 92–96
[2025-06-02 06:24] LABS: Calcium 8.9 mg/dL (8.7-10.4)
[2025-06-02 06:25] LABS: Anion Gap 10 (5-15)
[2025-06-02 06:30] LABS: BUN/Creatinine Ratio 17.5 (10.0-20.0); Blood Urea Nitrogen 18 mg/dL (9-23)
[2025-06-02 06:36] LABS: Hematocrit 40.5 % (41.0-53.0); Hemoglobin 14.0 g/dL (13.5-17.5); Nucleated Red Blood Cells % 0.0 %
[2025-06-02 06:37] LABS: Mean Corpuscular Hemoglobin 30.3 pg (28.0-32.0); Mean Corpuscular Volume 87.2 fL (80.0-100.0)
[2025-06-02 06:42] LABS: Carbon Dioxide 31 mmol/L (20-31); Chloride 93 mmol/L (98-107); Glucose 213 mg/dL (74-106); Potassium 3.5 mmol/L (3.5-5.1); Sodium 134 mmol/L (136-145)
[2025-06-02] MEDS: LOSARTAN POTASSIUM 50 MG TAB PO SCH (10:06)
[2025-06-02] MEDS: ERGOCALCIFEROL 50,000 UNIT(1.25MG) CAP PO SCH (16:06)
--- NOTE | 2025-06-02 16:20 | DVHPNRES ---
Progress Note Date Seen: Jun 02, 2025 Resident Creating Document: ANGEL BECKMAN RESIDENT Medical Necessity Reason Pt with a Central, PICC or Fol: No Subjective Review of Systems Tay Adrian is a 64-year-old male patient who presents to ED with chief complaint of bilateral lower limb weakness associated with frequent falls and no head trauma, associated with lower lumbar pain which radiates towards bilateral lower limbs. Per patient these symptoms have been occurring since 08/2024, he never seeked any medical help, in continued using lidocaine patches and Liberty which he gets for his chronic back pain. Patient has been noticing increased weakness, more frequent falls and bilateral lower limb swelling in the past week, prompting his visit to the ED. Denies fever, chills, chest pain, dyspnea, nausea, vomiting, diarrhea, sick contacts, unintentional weight loss and other associated symptoms. Past medical history: Hypertension, diabetes, dyslipidemia, chronic back pain, multiple forearm injuries status postop, peripheral neuropathy Surgical history: Head and left foot surgery after forearm injury Family history: Father had [place], mother diabetes Social history: Lives in [place] with (he is her caregiver since she has dementia). 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 Denies current tobacco, alcohol and other drug abuse Allergies: Denies Home medication: Lidocaine and Liberty Seen and evaluated in bedside. Patient denies any acute complaint except movement knees. Patient will be benefitted on physical therapy. Acute event overnight. Called next of kin son( Elian) but unable to reach. Objective vital signs Vital Sign Date Time Temp Pulse Resp B/P (MAP) Pulse Ox O2 Delivery O2 Flow Rate FiO2 06/02/25 13:04 98.2 77 12 125/71 (89) 95 98.2 06/02/25 08:00 Room Air* 0 21 Total Intake and Output 06/01/25 06/01/25 06/02/25 15:00 23:00 07:00 Intake Total 730 ml 300 ml Output Total 1500 ml Balance -770 ml 300 ml medications Current Medications Medications Dose Ordered Sig/April Route Start Time Stop Time Status Last Admin Dose Admin Acetaminophen 650 mg Q6HP PRN PO 05/29/25 19:30 Morphine Sulfate 2 mg Q4HPRN PRN IV 05/29/25 19:30 Enoxaparin Sodium 40 mg DAILY SC 05/30/25 10:00 06/02/25 09:16 40 MG Ceftriaxone Sodium 50 ml @ 100 mls/hr DAILY@09 IV 05/30/25 09:00 06/02/25 09:15 100 MLS/HR Vancomycin HCl 0 ml @ 0 mls/hr UD IV 05/29/25 19:45 Pantoprazole Sodium 40 mg DAILY@0600 PO 05/30/25 06:00 06/02/25 05:20 40 MG Insulin Glargine 10 units DAILY@1000 SC 05/30/25 10:00 06/02/25 09:24 10 UNITS Furosemide 20 mg DAILY IV 06/01/25 10:00 06/02/25 09:15 20 MG Colchicine 0.6 mg DAILY PO 06/01/25 10:00 06/02/25 09:16 0.6 MG Diagnostic Test (Pha) 1 strip Q6HR 06/01/25 12:00 06/02/25 12:11 1 STRIP Insulin Human Regular Q6HR SC 06/01/25 12:00 06/02/25 12:15 9 UNITS Dextrose 50 ml UD PRN IV 06/01/25 10:00 Vancomycin HCl 100 ml @ 100 mls/hr Q12H IV 06/01/25 18:00 06/02/25 05:44 100 MLS/HR Losartan Potassium 100 mg DAILY PO 06/02/25 10:00 06/02/25 10:06 100 MG Atorvastatin Calcium 10 mg HS PO 06/02/25 22:00 Ergocalciferol 50,000 unit Q7D PO 06/02/25 14:32 Examination Patient lying in bed, in no acute distress General: Lucid, afebrile, mucosae are moist Cardiovascular: Normal S1 and S2. No murmurs, gallops or rubs Respiratory: Normal ventilation mechanics. Clear lung sounds on auscultation Abdomen: Soft, nontender, no organomegaly, normal bowel sounds MSK/skin: Mobilizes 4 limbs, bilateral lower limbs are extremely weak ,Presents bilateral infrapatellar pitting edema. Restricted active pt bilateral knee Neurological: Oriented in 3 spheres. No motor no sensitive deficits. Pupils are isocoric and reactive laboratory and microbiology Laboratory Tests 06/02/25 05:31 Test 06/02/25 05:31 Range/Units Serum Glucose 213 H 74-106 mg/dL Microbiology Date/Time Source Procedure Growth Status 05/31/25 15:30 Knee Fluid Gram Stain - Final Resulted 05/31/25 15:30 Knee Fluid Body Fluid Culture - Preliminary Resulted 05/30/25 01:00 Voided Urine Urine Culture - Final Complete 05/29/25 20:00 Blood Blood Culture - Preliminary NO GROWTH AFTER 72 HOURS OF INCUBATION. Resulted Problem List/Assessment/Plan Problem List/Assessment/Plan Sepsis unknown source (rule out UTI and osteomyelitis of lumbar spine) Septic arthritis- bilateral knee Bilateral knee pain Right knee ultrasound revealed fluid collection.Ultrasound-guided aspiration of the right knee on 05/31/2025 Arthrocentesis shows PH 8.0, WBC 8750, RBC 131793 Neutrophil 80, glucose 245, total protein 4.3 Fluid albumin 2.6, fluid LDH pending Awaiting for culture-knee joint fluid Blood and urine cultures revealed no growth WBC 12.2, monitor CBC daily Under empiric IV antibiotic (ceftriaxone and vancomycin) Blood culture preliminary on 05/30/2025 shows no growth UDS negative Physical therapy Monitor vital Probable acute on newly diagnosed congestive heart failure Ruled out DVT Presents bilateral lower limb pitting edema. BNP negative but patient is obese. echocardiogram Mild LVH and mild LV diastolic dysfunction, LV ejection fraction 65%, normal, normal valves and no effusion EKG. lower limb venous ultrasound no DVT Empagliflozin Losartan Furosemide Rule out CVA Head CT : No acute abnormality PALPITATION Proximal bilateral lower limb myopathy - rule out myositis Right knee effusion ( swelling and warmth) due to septic arthritis? Bilateral knee swelling Arthrocentesis-waiting for culture result Pain management with morphine Colchicine Monitor pain Patient progressively wheelchair-bound CPK normal Lumbar spine CT: No definite CT evidence of acute fracture or dislocation of the bony lumbar spine, multiple degenerative changes of the lumbar spine with multilevel spinal stenosis stenosis of the central canal from L1-L2 to L5-S1 Uncontrolled Diabetes Hypertension Dyslipidemia Gave advice on healthy lifestyle habits On insulin sliding scale Lantus 10 units q.h.s. Atorvastatin Losartan Lipid panel hemoglobin A1c 11.6 Vitamin-D deficiency Vitamin-D level 25.5 Vitamin-D 70578 units p.o. Q weekly Hyperbilirubinemia Hyponatremia GI prophylaxis pantoprazole Acid Lovenox Goals of care discussion, more than 20 minute spent with patient. Full code status. Case discussed with Dr. Love Plan discussed with: Patient, Other My Orders My Orders Orders - ANGEL BECKMAN Procedure Category Date Status Time Losartan Tablet PHA 06/02/25 In Process (Cozaar Tablet) 10:00 Atorvastatin (Lipitor) PHA 06/02/25 In Process 22:00 Ergocalciferol PHA 06/02/25 In Process (Vitamin D 50,000 14:32 Pt Request For Service PT 06/02/25 Logged 13:10 Date of Service: Jun 02, 2025 Billing Provider: CORINA LOVE MD Common Visit Codes: [id number] INP/OBS CARE(HIGH) ANGEL BECKMAN Jun 02, 2025 16:20 CORINA LOVE MD Jun 03, 2025 01:00
[2025-06-02] MEDS: ATORVASTATIN 20 MG TAB PO SCH (21:46)
[2025-06-02] MEDS: MORPHINE SULFATE INJ 2 MG/ml SYRG IV PRN (21:49)
[2025-06-03] VITALS (8 sets, daily range): BP systolic 115–129; BP diastolic 68–84; PULSE 57–88; RESP 12–18; TEMP 97.5–98.6; O2SAT 94–98
[2025-06-03 07:13] LABS: Hematocrit 42.1 % (41.0-53.0); Hemoglobin 14.7 g/dL (13.5-17.5); Mean Corpuscular Hemoglobin 30.5 pg (28.0-32.0); Mean Corpuscular Volume 87.5 fL (80.0-100.0); Nucleated Red Blood Cells % 0.0 %
[2025-06-03 07:38] LABS: Potassium 3.6 mmol/L (3.5-5.1)
[2025-06-03 07:39] LABS: Anion Gap 9 (5-15); Calcium 8.9 mg/dL (8.7-10.4); Carbon Dioxide 29 mmol/L (20-31)
[2025-06-03 07:44] LABS: BUN/Creatinine Ratio 18.1 (10.0-20.0); Blood Urea Nitrogen 17 mg/dL (9-23)
[2025-06-03 07:53] LABS: Chloride 96 mmol/L (98-107); Glucose 240 mg/dL (74-106); Sodium 134 mmol/L (136-145)
[2025-06-03] MEDS: MILK OF MAGNESIA 30ML SUSP PO ONE (10:18)
[2025-06-03] MEDS: DOCUSATE SOD 100 MG CAP PO SCH (10:18)
--- NOTE | 2025-06-03 16:55 | DVHPNRES ---
Progress Note Date Seen: Jun 03, 2025 Resident Creating Document: JENNYFER VELIZ RESIDENT Medical Necessity Reason Pt with a Central, PICC or Fol: No Subjective Review of Systems Tay Adrian is a 64-year-old male patient who presents to ED with chief complaint of bilateral lower limb weakness associated with frequent falls and no head trauma, associated with lower lumbar pain which radiates towards bilateral lower limbs. Per patient these symptoms have been occurring since 08/2024, he never seeked any medical help, in continued using lidocaine patches and Chestnut which he gets for his chronic back pain. Patient has been noticing increased weakness, more frequent falls and bilateral lower limb swelling in the past week, prompting his visit to the ED. Denies fever, chills, chest pain, dyspnea, nausea, vomiting, diarrhea, sick contacts, unintentional weight loss and other associated symptoms. Past medical history: Hypertension, diabetes, dyslipidemia, chronic back pain, multiple forearm injuries status postop, peripheral neuropathy Surgical history: Head and left foot surgery after forearm injury Family history: Father had [place], mother diabetes Social history: Lives in [place] with (he is her caregiver since she has dementia). 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 Denies current tobacco, alcohol and other drug abuse Allergies: Denies Home medication: Lidocaine and Chestnut ROS: 06/03/2025: Seen and evaluated in bedside. Patient denies any acute complaint except movement knees. Physical therapy saw the patient today and patient was only able to walk 1 ft. Patient reported that he has not had any stool in the past 7 days, Colace 100 mg b.i.d. and magnesium hydroxide 30 mg OD was given after which patient passed stool reports feeling better. Blood sugar level today was 200 and insulin sliding scale was adjusted from moderate to aggressive sliding scale. Objective vital signs Vital Sign Date Time Temp Pulse Resp B/P (MAP) Pulse Ox O2 Delivery O2 Flow Rate FiO2 06/03/25 12:40 98.4 72 12 124/72 (89) 98 98.4 06/03/25 08:00 Room Air* 0 21 Total Intake and Output 06/02/25 06/02/25 06/03/25 15:00 23:00 07:00 Intake Total 390 ml 700 ml Output Total 700 ml Balance -310 ml 700 ml medications Current Medications Medications Dose Ordered Sig/April Route Start Time Stop Time Status Last Admin Dose Admin Acetaminophen 650 mg Q6HP PRN PO 05/29/25 19:30 Morphine Sulfate 2 mg Q4HPRN PRN IV 05/29/25 19:30 06/02/25 23:00 2 MG Enoxaparin Sodium 40 mg DAILY SC 05/30/25 10:00 06/03/25 09:17 40 MG Ceftriaxone Sodium 50 ml @ 100 mls/hr DAILY@09 IV 05/30/25 09:00 06/03/25 09:14 100 MLS/HR Vancomycin HCl 0 ml @ 0 mls/hr UD IV 05/29/25 19:45 Pantoprazole Sodium 40 mg DAILY@0600 PO 05/30/25 06:00 06/03/25 05:41 40 MG Insulin Glargine 10 units DAILY@1000 SC 05/30/25 10:00 06/03/25 09:17 10 UNITS Furosemide 20 mg DAILY IV 06/01/25 10:00 06/03/25 09:15 20 MG Colchicine 0.6 mg DAILY PO 06/01/25 10:00 06/03/25 09:16 0.6 MG Diagnostic Test (Pha) 1 strip Q6HR 06/01/25 12:00 06/03/25 12:06 1 STRIP Insulin Human Regular Q6HR SC 06/01/25 12:00 06/03/25 12:13 9 UNITS Dextrose 50 ml UD PRN IV 06/01/25 10:00 Losartan Potassium 100 mg DAILY PO 06/02/25 10:00 06/03/25 09:16 100 MG Atorvastatin Calcium 10 mg HS PO 06/02/25 22:00 06/02/25 21:46 10 MG Ergocalciferol 50,000 unit Q7D PO 06/02/25 14:32 06/02/25 16:06 50,000 UNIT Docusate Sodium 100 mg BID PO 06/03/25 10:00 06/03/25 10:18 100 MG Examination Patient lying in bed, in no acute distress General: Lucid, afebrile, mucosae are moist Cardiovascular: Normal S1 and S2. No murmurs, gallops or rubs Respiratory: Normal ventilation mechanics. Clear lung sounds on auscultation Abdomen: Soft, nontender, no organomegaly, normal bowel sounds MSK/skin: Mobilizes 4 limbs, bilateral lower limbs are extremely weak ,Presents bilateral infrapatellar pitting edema. Restricted active pt bilateral knee Neurological: Oriented in 3 spheres. No motor no sensitive deficits. Pupils are isocoric and reactive Psychological: Normal mental status laboratory and microbiology Laboratory Tests 06/03/25 06:42 Test 06/03/25 06:42 Range/Units Serum Glucose 240 H 74-106 mg/dL Microbiology Date/Time Source Procedure Growth Status 05/31/25 15:30 Knee Fluid Gram Stain - Final Resulted 05/31/25 15:30 Knee Fluid Body Fluid Culture - Preliminary Resulted 05/30/25 01:00 Voided Urine Urine Culture - Final Complete 05/29/25 20:00 Blood Blood Culture - Preliminary NO GROWTH AFTER 72 HOURS OF INCUBATION. Resulted Labs and/or images reviewed: Labs reviewed by me, Image(s) reviewed by me Problem List/Assessment/Plan Problem List/Assessment/Plan #Sepsis unknown source (rule out UTI and osteomyelitis of lumbar spine) #Septic arthritis- bilateral knee Bilateral knee pain Right knee ultrasound revealed fluid collection.Ultrasound-guided aspiration of the right knee on 05/31/2025 Arthrocentesis shows PH 8.0, WBC 8750, RBC 143194 Neutrophil 80, glucose 245, total protein 4.3 Fluid albumin 2.6, fluid LDH pending Awaiting for culture-knee joint fluid Blood and urine cultures revealed no growth WBC 12.2, monitor CBC daily Under empiric IV antibiotic (ceftriaxone and vancomycin) Blood culture preliminary on 05/30/2025 shows no growth, final culture results shows Few White Blood Cells Seen, Moderate Red Blood Cells Seen, No organisms seen UDS negative, final cultures negative Physical therapy Suggested- physical therapy to be done outpatient on discharge Monitor vital #Probable acute on newly diagnosed congestive heart failure #Rule out DVT Presents bilateral lower limb pitting edema. BNP negative but patient is obese. echocardiogram Mild LVH and mild LV diastolic dysfunction, LV ejection fraction 65%, normal, normal valves and no effusion EKG. lower limb venous ultrasound- no DVT Empagliflozin Losartan Furosemide #Rule out CVA Head CT : No acute abnormality palpitation #Proximal bilateral lower limb myopathy - rule out myositis #Right knee effusion (swelling and warmth) due to septic arthritis? Bilateral knee swelling Arthrocentesis- final culture results shows Few White Blood Cells Seen, Moderate Red Blood Cells Seen, No organisms seen Pain management with morphine Colchicine Monitor pain #Patient progressively wheelchair-bound CPK normal Lumbar spine CT: No definite CT evidence of acute fracture or dislocation of the bony lumbar spine, multiple degenerative changes of the lumbar spine with multilevel spinal stenosis stenosis of the central canal from L1-L2 to L5-S1 # Uncontrolled DM type 2, hemoglobin A1c 11.6 # Hypertension # Dyslipidemia Gave advice on healthy lifestyle habits On insulin sliding scale changed from moderate to aggressive sliding scale on 06/03 Lantus 10 units q.h.s. Atorvastatin Losartan Lipid panel #Vitamin-D deficiency Vitamin-D level 25.5 Vitamin-D 95349 units p.o. Q weekly #Slow transit constipation Colace 100 mg b.i.d. Magnesium hydroxide 30 mg once a day #Hyperbilirubinemia #Hyponatremia GI prophylaxis pantoprazole DVT prophylaxis Lovenox Goals of care discussion, more than 20 minute spent with patient. Full code status. Case discussed with Dr. Waldron Plan discussed with: Patient, Other Plan discussed with: Patient, Other (rn) My Orders My Orders Orders - JENNYFER VELIZ Procedure Category Date Status Time Docusate Sodium PHA 06/03/25 In Process Capsule (Colace 10:00 Date of Service: Jun 03, 2025 Billing Provider: JOHN WALDRON MD Common Visit Codes: [id number] INP/OBS CARE(HIGH) JENNYFER VELIZ Jun 03, 2025 16:55 JOHN WALDRON MD Jun 06, 2025 13:28
[2025-06-03] MEDS ORDERED: DEXTROSE (50%) 50ML SYRG IV PRN (17:00)
[2025-06-03] MEDS: ACCU-CHEK COMFORT CURVE STRIP VI SCH (18:12)
[2025-06-03] MEDS: InsuLIN REG 1unit/0.01ml Soln (100units/ml) SC SCH (18:17)
[2025-06-03] MEDS: ACETAMINOPHEN 325 MG TAB PO PRN (21:01)
[2025-06-03] MEDS: VANCOMYCIN 1GM/250ML KIT 250 ML IV SCH (23:03)
[2025-06-04] VITALS (9 sets, daily range): BP systolic 131–143; BP diastolic 74–95; PULSE 59–79; RESP 16–20; TEMP 97.6–98.8; O2SAT 94–99
[2025-06-04 08:08] LABS: Hematocrit 41.6 % (41.0-53.0); Hemoglobin 14.3 g/dL (13.5-17.5); Mean Corpuscular Hemoglobin 30.0 pg (28.0-32.0); Mean Corpuscular Volume 87.4 fL (80.0-100.0); Nucleated Red Blood Cells % 0.1 %
[2025-06-04 10:13] LABS: Anion Gap 10 (5-15)
[2025-06-04 10:14] LABS: Calcium 8.9 mg/dL (8.7-10.4)
[2025-06-04 10:15] LABS: Carbon Dioxide 30 mmol/L (20-31); Chloride 99 mmol/L (98-107); Potassium 3.7 mmol/L (3.5-5.1); Sodium 139 mmol/L (136-145)
[2025-06-04 10:19] LABS: BUN/Creatinine Ratio 21.0 (10.0-20.0); Blood Urea Nitrogen 17 mg/dL (9-23)
[2025-06-04 10:24] LABS: Glucose 183 mg/dL (74-106)
[2025-06-04] MEDS: INSULIN LANTUS (GLARGINE) 1 /0.01ml (100units/ml) SC SCH (10:45)
--- NOTE | 2025-06-04 18:53 | DVHDSRES ---
Discharge Summary Date of Admission Resident Creating Document: JENNYFER VELIZ RESIDENT May 29, 2025 at 19:18 Date of Discharge: Jun 04, 2025 Admitting Diagnosis Knee pain bilateral Labs/Diagnostic Data: Laboratory Results Test 06/04/25 17:53 06/04/25 07:07 06/03/25 18:05 06/02/25 05:31 POC Glucose 256 mg/dl (70-106) White Blood Count 8.2 10^3/uL (4.4-10.8) Red Blood Count 4.76 10^6/uL (4.5-5.90) Hemoglobin 14.3 g/dL (13.5-17.5) Hematocrit 41.6 % (41.0-53.0) Mean Corpuscular Volume 87.4 fL (80.0-100.0) Mean Corpuscular Hemoglobin 30.0 pg (28.0-32.0) Mean Corpuscular Hemoglobin Concent 34.4 g/dL (32.0-36.0) Red Cell Distribution Width 13.8 % (11.8-14.3) Platelet Count 313 10^3/uL (140-450) Mean Platelet Volume 7.1 fL (6.9-10.8) Neutrophils (%) (Auto) 71.4 % (37.0-80.0) Lymphocytes (%) (Auto) 19.7 % (10.0-50.0) Monocytes (%) (Auto) 6.0 % (0.0-12.0) Eosinophils (%) (Auto) 2.5 % (0.0-7.0) Basophils (%) (Auto) 0.4 % (0.0-2.0) Neutrophils # (Auto) 5.8 10 ^3/uL (1.6-8.6) Lymphocytes # (Auto) 1.6 10 ^3/uL (0.4-5.4) Monocytes # (Auto) 0.5 10 ^3/uL (0-1.3) Eosinophils # (Auto) 0.2 10 ^3/uL (0-0.8) Basophils # (Auto) 0 10 ^3/uL (0-0.2) Nucleated Red Blood Cells 0.1 % Sodium Level 139 mmol/L (136-145) Potassium Level 3.7 mmol/L (3.5-5.1) Chloride Level 99 mmol/L (98-107) Carbon Dioxide Level 30 mmol/L (20-31) Anion Gap 10 (5-15) Blood Urea Nitrogen 17 mg/dL (9-23) Creatinine 0.81 mg/dL (0.700-1.30) Glomerular Filtration Rate Calc 99 mL/min (>90) BUN/Creatinine Ratio 21.0 (10.0-20.0) Serum Glucose 183 mg/dL (74-106) Calcium Level 8.9 mg/dL (8.7-10.4) Vancomycin Level Trough 6.9 ug/mL (5-10) Lactate Dehydrogenase 226 U/L (120-246) Test 06/01/25 05:45 05/31/25 15:30 05/30/25 01:00 05/29/25 20:00 Total Bilirubin 1.7 mg/dL (0.2-1.0) Aspartate Amino Transferase (AST) 16 U/L (13-40) Alanine Aminotransferase (ALT) 15 U/L (7-40) Alkaline Phosphatase 70 U/L (46-116) Total Protein 7.7 g/dL (5.7-8.2) Albumin 4.1 g/dL (3.2-4.8) Random Vancomycin Level 4.4 ug/mL (5-10) Body Fluid Source Joint fluid Body Fluid pH 8.0 Body Fluid WBC (Manual) 8750 CUMM (0-200) Body Fluid RBC (Manual) 930448 CUMM (0-2000) Body Fluid Mononuclear Cells 20 % Body Fluid Polymorphonuclear Cells 80 % (0-25) Body Fluid Glucose 245 mg/dL (.) Body Fluid Total Protein 4.3 g/dL (.) Body Fluid Albumin 2.6 g/dL (Not Estab.) Urine Color Light-yellow (Yellow) Urine Clarity Clear (Clear) Urine pH 5.0 (5.0-9.0) Urine Specific Adrian 1.009 (1.001-1.035) Urine Protein Negative (Negative) Urine Ketones Negative (Negative) Urine Blood Negative /uL (Negative) Urine Nitrite Negative (Negative) Urine Bilirubin Negative (Negative) Urine Urobilinogen Normal mg/dL (Negative) Urine Leukocyte Esterase Negative /uL (Negative) Urine RBC <1 /hpf (0 - 3) Urine Microscopic WBC 1 /HPF (0-3) Urine Squamous Epithelial Cells Few /hpf (<5) Urine Bacteria None seen /hpf (None Seen) Urine Hyaline Casts Few /lpf (0 - 2) Urine Glucose 3+ mg/dL (Normal) Urine Opiates Screen Neg (NEGATIVE) Urine Fentanyl Screen Neg (NEGATIVE) Urine Barbiturates Screen Neg (NEGATIVE) Urine Phencyclidine Screen Neg (NEGATIVE) Urine Amphetamines Screen Neg (NEGATIVE) Urine Benzodiazepines Screen Neg (NEGATIVE) Urine Cocaine Screen Neg (NEGATIVE) Urine Cannabinoids Screen Neg (NEGATIVE) Prothrombin Time 10.9 sec (9.3-11.8) Prothrombin Time INR 1.03 (0.9-1.15) Activated Partial Thromboplast Time 30.1 SEC (24.5-34.5) Lactic Acid Level 1.6 mmol/L (0.4-2.0) Test 05/29/25 10:37 Hemoglobin A1c 11.3 % A1C (<5.7) Phosphorus Level 2.8 mg/dL (2.4-5.1) Magnesium Level 1.9 mg/dL (1.6-2.6) Direct Bilirubin 0.5 mg/dL (<0.3) Creatine Kinase 105 U/L (46-171) B-Type Natriuretic Peptide 0.77 pg/mL (0-100) Triglycerides Level 107 mg/dL (< 150) Cholesterol Level 139 mg/dL (< 200) LDL Cholesterol 84 mg/dL (< 100) HDL Cholesterol 39 mg/dL (40-59) Vitamin B12 Level 686 pg/mL (211-911) Vitamin D 25-Hydroxy 25.5 ng/mL (30.0-100) Thyroid Stimulating Hormone (TSH) 2.20 uIU/mL (0.55-4.78) Other Laboratory Tests 06/04/25 07:07 Brief Hx & Hospital Course: Tay Adrian is a 64-year-old male patient who presents to ED with chief complaint of bilateral lower limb weakness associated with frequent falls and no head trauma, associated with lower lumbar pain which radiates towards bilateral lower limbs. Per patient these symptoms have been occurring since 08/2024, he never seeked any medical help, in continued using lidocaine patches and Dolph which he gets for his chronic back pain. Patient has been noticing increased weakness, more frequent falls and bilateral lower limb swelling in the past week, prompting his visit to the ED. Denies fever, chills, chest pain, dyspnea, nausea, vomiting, diarrhea, sick contacts, unintentional weight loss and other associated symptoms. Past medical history: Hypertension, diabetes, dyslipidemia, chronic back pain, multiple forearm injuries status postop, peripheral neuropathy Surgical history: Head and left foot surgery after forearm injury Family history: Father had GA, mother diabetes Social history: Lives in [place] with (he is her caregiver since she has dementia). 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 Denies current tobacco, alcohol and other drug abuse Allergies: Denies Home medication: Lidocaine and Dolph Brief history of hospitalization: Patient came with bilateral knee pain With swelling of the right knee and right knee ultrasound revealed fluid collection. USG guided aspiration of the right knee was performed on 05/31/2025. Arthrocentesis showed neutrophils 80, glucose 245, total protein 4.3, RBC 029498, WBC 8750. blood, urine and body fluid cultures sent which came back negative. patient was given ceftriaxone and vancomycin intravenously during hospital stay. orthopedics consultation was done and steroid injection was given to the patient on bilateral knees. Physical therapy was suggested and done for 2 days during hospitalization. patient's CPK was normal and lumbar spine CT showed no definite CT evidence of acute fracture or dislocation of the bony lumbar spine, multiple degenerative changes of the lumbar spine with multilevel spinal stenosis of the central canal from L1-L2 to L5-S1. Patient was managed on pain medication: Morphine.. For uncontrolled diabetes mellitus with HbA1c of 11.6, we continuously monitored glucose and gave him insulin which was adjusted according to the labs. We continued his atorvastatin and losartan for his hypertension and hyperlipidemia and during hospitalization patient also complained of 7 days of constipation for which docusate and magnesium hydroxide were given after which the patient had a bowel movement and felt better. Patient also had vitamin-D deficiency with level stool and T5.5 and it was repleted. Patient is now stable for discharge and will be going home to stay with his son. We have advised outpatient physiotherapy and resources have been given to him to follow up with [facility]. Patient lying in bed, in no acute distress General: Lucid, afebrile, mucosae are moist Cardiovascular: Normal S1 and S2. No murmurs, gallops or rubs Respiratory: Normal ventilation mechanics. Clear lung sounds on auscultation Abdomen: Soft, nontender, no organomegaly, normal bowel sounds MSK/skin: Mobilizes 4 limbs, bilateral lower limbs are extremely weak ,Presents bilateral infrapatellar pitting edema. Restricted active pt bilateral knee Neurological: Oriented in 3 spheres. No motor no sensitive deficits. Pupils are isocoric and reactive Psychological: Normal mental status Operations or Procedures PROCEDURE(s): RKN3 - R KNEE 3V XRAY REASON: fall ORDER NUMBER(s): [id number], ACCESSION NUMBER(s): [id number] CLINICAL INDICATION: Pain, trauma TECHNIQUE: 3 radiographic views of the right knee were obtained. Comparison: XY R KNEE 3V XRAY on DOS: 05/24/25, XY L KNEE 3V XRAY on DOS: 05/24/25 FINDINGS/IMPRESSION: There is no evidence of acute fracture or dislocation. Severe right tricompartmental knee osteoarthrosis. PROCEDURE(s): BLDVT - BiLat Lower DVT REASON: Bilateral lower limb swelling ORDER NUMBER(s): [id number], ACCESSION NUMBER(s): [id number] IMPRESSION: NO SONOGRAPHIC EVIDENCE FOR DEEP VENOUS THROMBOSIS IN THE BILATERAL LOWER EXTREMITY VEINS. HWOCT - HEAD WITHOUT CONTRAST IMPRESSION: NO ACUTE INTRACRANIAL ABNORMALITY SEEN. CT LS SPINE WO CONTRAST IMPRESSION: 1. No definite CT evidence of acute fracture or dislocation of the bony lumbar spine. 2. Multilevel degenerative changes of the lumbar spine with multilevel spinal stenosis as described above. 3. Stenosis of the central canal from L1-2 to L5-S1. ----- cxr IMPRESSION: 1. No evidence of acute disease. RLEXT - RIGHT LOWER EXTREMITY ULTRASOU 1. In the area of interest anteriorly over the right knee is a 4.4 x 0.7 by 4.5 cm anechoic area which may represent a fluid collection. LLEXT - LEFT LOWER EXTREMITY ULTRASOUN IMPRESSION: 1. There is a 3.7 x 0.9 x 2.6 cm anechoic area anterior to the left knee corresponding to the area of interest. 2. This appears avascular. 3. This is nonspecific but could represent a fluid collection. PROCEDURE(s): THOUS - US GUIDANCE FOR NEEDLE PLACEME REASON: BILAT KNEE ASPIRATION ORDER NUMBER(s): [id number], ACCESSION NUMBER(s): [id number] PROCEDURE: ULTRASOUND GUIDED ASPIRATION HISTORY: BILAT KNEE ASPIRATION TECHNIQUE: Informed consent was obtained and a procedural time out was performed. The skin over the right knee was sterilely prepped, draped, and infiltrated with 1% lidocaine. Ultrasound was used to locate the fluid collection with images archived in the PACS. Using real-time ultrasound guidance, the collection was accessed with a 19-gauge Yueh needle. Sterile dressings were applied. FINDINGS: Ultrasound demonstrates a small fluid collection. Serosanguineous material was aspirated with a sample sent for laboratory evaluation. No complications were encountered. IMPRESSION: Ultrasound-guided aspiration within the right knee. Procedure performed by Dr. Whyte. ATED BY: BIRGIT CHEN MD DICTATED DATE/TIME: 05/31/25 1644 Condition at Discharge: Stable Final Diagnosis/Problems List #b/l osteoarthritis with massive knee effusion and immobility #ruled out Sepsis osteoarthritis # ruled out UTI and osteomyelitis of lumbar spine #Proximal bilateral lower limb myopathy, ruled out myositis #Right knee effusion (swelling and warmth) due to osteoarthritis # Uncontrolled DM type 2, hemoglobin A1c 11.6 # Hypertension # Dyslipidemia #Vitamin-D deficiency #Slow transit constipation #Hyperbilirubinemia #Hyponatremia #ruled out Septic arthritis bilateral knee #ruled out Probable acute on newly diagnosed congestive heart failure #Ruled out DVT #Ruled out CVA Discharge Disposition: Home Discharge Instruct/Medications Diet: Consistent carbohydrate, Cardiac 2g Na,low cholest Activity: No Restrictions, As Tolerated Follow Up/Referral: followup with pcp in 10 days f/u with orthopedics within 2 weeks Medications: levofloxacin 500mg PO once a day for 10 days acetaminophen 650mg q6 prn resume all home medications Scheduled Empagliflozin (Jardiance), 25 MG PO DAILY, (Reported) Losartan Potassium (Losartan Potassium), 100 MG PO DAILY, (Reported) Metformin Hydrochloride (Metformin Hcl), 1,000 MG PO BID, (Reported) Simvastatin (Simvastatin), 20 MG PO DAILY, (Reported) Discharge Statement: "Patient was advised to return to the ER or call 911 if any headaches, dizziness, shortness of breath, chest pain, abdominal pain, bleeding, fevers, or worsening of medical condition. Patient was counseled about treatment plan, medications, possible side effects, patientverbalized understanding. All questions were answered to the best of my ability. This discharge took greater then 30 minutes in planning, reviewing documentation, counseling the patient, and discussing with other team members." ASSESSMENT ASSESSMENT Assessment osteoarthritis with massive knee effusion and immobility JENNYFER VELIZ RESIDENT Jun 04, 2025 18:53
[2025-06-04] MEDS ORDERED: EMPA1TAB3 PO (21:23)
== END 2025-06-04 21:56 | disposition home or self-care (01) | DRG 565 ==
LOC: EDBD 09:34 → EDUNIT# 09:34 → ER 09:34 → OVERFLOW 19:18 → TELE-WESTW 05-30 16:00
PROVIDERS: ADMIT Student in an Organized Health Care Education/Training Program; ATTEND Student in an Organized Health Care Education/Training Program
PROC: 0S9C3ZZ Drainage of Right Knee Joint, Percutaneous Approach (ICD-10-PCS; principal; 2025-05-31)
DX: M25.461 Effusion, right knee (principal); E87.1 Hypo-osmolality and hyponatremia; G45.9 Transient cerebral ischemic attack, unspecified; G72.9 Myopathy, unspecified; E78.5 Hyperlipidemia, unspecified; I10 Essential (primary) hypertension; R29.6 Repeated falls; G89.29 Other chronic pain; E11.42 Type 2 diabetes mellitus with diabetic polyneuropathy; E55.9 Vitamin D deficiency, unspecified; E80.6 Other disorders of bilirubin metabolism; K59.01 Slow transit constipation; Z82.49 Family history of ischemic heart disease and other diseases of the circulatory system; Z83.3 Family history of diabetes mellitus; Z99.3 Dependence on wheelchair; M17.0 Bilateral primary osteoarthritis of knee
CPT/HCPCS: 20611; 36415; 70450; 71046; 72131; 73562; 76881; 76942; 80048; 80053; 80061; 80076; 80202; 80307; 81001; 82306; 82550; 82607; 82962; 83036; 83605; 83615; 83735; 83880; 83986; 84100; 84443; 85025; 85610; 85730; 87040; 87071; 87086; 87205; 89051; 93005; 93306; 93926; 93970; 97110; 97116; 97163; C1729; G0378; J1815